=== PATIENT | female | born 1945 | race Caucasian/White ===

== ENCOUNTER 2017-02-02 16:21 | Emergency (ER) | payer MEDICARE, BC ==
[2017-02-02 16:54] VITALS: BP 119/53
--- NOTE | 2017-02-02 18:10 | UC ---
Throat Pain/Nasal Prince HPI - HPI Summary HPI Summary: P tc/o nasal congestion, sinus pressure and pain, PND X 5days - History of Current Complaint Chief Complaint: UCRespiratory Stated Complaint: UPPER RESPIRATORY Time Seen by Provider: 02/02/17 17:36 Hx Obtained From: Patient ?: No Onset/Duration: Gradual Onset, Lasting Days, Still Present, Worse Since - onset Pain Intensity: 0 Pain Scale Used: 0-10 Numeric Associated Signs & Symptoms: Positive: Sinus Discomfort - Epiglottits Risk Factors Epiglottis Risk Factors: Negative - Allergies/Home Medications Allergies/Adverse Reactions: Allergies Allergy/AdvReac Type Severity Reaction Status Date / Time No Known Allergies Allergy Verified 02/02/17 16:54 PMH/Surg Hx/FS Hx/Imm Hx Previously Healthy: Yes Cardiovascular History: Hypertension - Surgical History Surgical History: Yes Surgery Procedure, Year, and Place: TONSILLECTOMY. D&C'S. 02/2013 K[facility] - Family History Known Family History: Positive: Cardiac Disease - Social History Occupation: Retired Lives: With Family Alcohol Use: Occasionally Alcohol Amount: FEW DRINKS/MONTH Substance Use Type: None Smoking Status (MU): Never Smoked Tobacco Have You Smoked in the Last Year: No Review of Systems Constitutional: Chills, Fatigue Skin: Negative Eyes: Negative ENT: Sinus Congestion, Sinus Pain/Tenderness Respiratory: Cough Cardiovascular: Negative Gastrointestinal: Negative Genitourinary: Negative Motor: Negative Neurovascular: Negative Musculoskeletal: Negative Neurological: Headache Psychological: Negative Is Patient Immunocompromised?: No All Other Systems Reviewed And Are Negative: Yes Physical Exam Triage Information Reviewed: Yes Appearance: Well-Appearing Vital Signs: Initial Vital Signs Temp 98.0 F 02/02/17 16:50 Pulse 71 02/02/17 16:50 Resp 16 02/02/17 16:50 BP 119/53 02/02/17 16:50 Pulse Ox 99 02/02/17 16:50 Vital Signs Reviewed: Yes Eye Exam: Normal ENT Exam: Other ENT: Positive: Nasal congestion, Sinus tenderness Dental Exam: Normal Neck exam: Normal Respiratory Exam: Normal Cardiovascular Exam: Normal Musculoskeletal Exam: Normal Neurological Exam: Normal Psychological Exam: Normal Skin Exam: Normal Throat Pain/Nasal Course/Dx - Differential Dx/Diagnosis Differential Diagnosis/HQI/PQRI: Sinusitis, URI Provider Diagnoses: sinusitis Discharge - Discharge Plan Condition: Stable Disposition: HOME Prescriptions: Amoxicillin PO (*) [Amoxicillin 875 MG (*)] 875 mg PO Q12H #20 tab Patient Education Materials: Sinusitis (ED) Referrals: Lila Mcghee MD [Primary Care Provider] - If Needed
== END 2017-02-02 17:48 | disposition home or self-care (01) ==
LOC: UCCORT 16:21
DX: J32.9 Chronic sinusitis, unspecified (principal); Z72.89 Other problems related to lifestyle
CPT/HCPCS: 99212; G0463

== ENCOUNTER → 2017-12-03 06:08 | Day surgery (SDC) | payer MEDICARE, BC ==
--- NOTE | 2017-12-01 06:43 | HP ---
CC: Dr. Lila Mcghee; Dr. Anderson ADMITTING HISTORY AND PHYSICAL: DATE OF ADMISSION: 12/03/17 ADMITTING DIAGNOSES: 1. Right hydronephrosis. 2. Calculus, right ureter. 3. Right renal calculi. PLANNED PROCEDURE: Right ureteroscopy, possible laser and stent insertion (possibly to be followed i n the near future by lithotripsy). SURGEON: Dr. Anderson. HISTORY OF PRESENT ILLNESS: Lauren Skaggs is a 72-year-old lady with a history of recurrent renal calcu li. She was recently evaluated because of about 9 to 10-day history of abdominal pain predominantly on the right side. She has a history of recurrent renal calculi and a sonogram was obtained, which r evealed mild right hydronephrosis with an approximately 5 mm calculus in the distal right ureter. In addition to that, she has bilateral renal calculi. I recommended that we try conservative management and she was given Flomax 0.4 mg once a day to take as well as I also instructed her to significantly increase her fluid intake and also to strain her ur ine. The plan is that if she is not able to pass the calculus in the next several days, then she domingo l be brought in for ureteroscopy as she is confirmed that she has increasing pain over the weekend an d she states she has never been able to spontaneously pass a calculus before. PAST MEDICAL HISTORY: Significant for: 1. Recurrent renal calculi. 2. Hypertension. MEDICATIONS: On admission, enalapril 12.5 mg once a day. ALLERGIES: No known drug allergies. REVIEW OF SYSTEMS: She is otherwise in excellent health. There is no history of diabetes mellitus o r any other major systemic illness. PHYSICAL EXAMINATION GENERAL: Reveals a pleasant middle-aged lady. VITAL SIGNS: Blood pressure is 160/90; pulse 63 per minute, regular; temperature 97; oxygen saturati on 98% on room air. LUNGS: Clear bilaterally. CARDIOVASCULAR: Regular rate and rhythm. S1, S2. ABDOMEN: Soft with mild right flank tenderness. IMPRESSION: A 72-year-old lady with a right ureteral calculus as well as right renal calculi. Plan teresita procedure is right ureteroscopy, possible laser and stent insertion (possibly to be followed in t he near future by lithotripsy). [id number]/[facility] #: [id number]
[~2017-12-03 06:08] MED LIST: Buffered Lidocaine 0.9% SYRIN* 5 ML/SYR SYRINGE INTRADERM ONE; Buffered Lidocaine 0.9% SYRIN* 5 ML/SYR SYRINGE ONE; HYDROcodone/ACETAMIN 5-325 MG* 1 TAB PO PRN; Iohexol 180 (CONTRAST) 10 ML SDV IV ONE; Midazolam* 1 MG/ML 2 ML VIAL (2 MG) ONE; Naloxone* 0.4 MG/ML 1 ML VIAL IV PRN; Ondansetron INJ* 2 MG/ML VIAL IV PRN; Ondansetron INJ* 2 MG/ML VIAL ONE; Propofol* 10 MG/ML 20 ML BTL IV PUSH ONE; cefTRIAXone(*) 2 GM ADDV.VIAL IVPB ONE; fentaNYL* 50 MCG/ML 2 ML VIAL (100 MCG VIAL) IV PRN; fentaNYL* 50 MCG/ML 2 ML VIAL (100 MCG VIAL) ONE
--- NOTE | 2017-12-03 09:04 | RAD ---
INDICATION: RIGHT retrograde pyelogram, laser lithotripsy, stent placement. Technique: 13 seconds of?fluoroscopy?was provided?for the physician proceduralist. REPORT: Retrograde pyelogram documents hydroureter and mild calyceal blunting. Ureteral stent placed with decompression of the collecting system and ureter. IMPRESSION: Procedural control films. CPT II Codes: G9500
[2017-12-03 09:19] VITALS: BP 147/77
--- NOTE | 2017-12-03 10:22 | RAD ---
Indication: Right stent insertion. Flat plate of the abdomen demonstrates right ureteral stent in place. No dilated loops of bowel are noted. IMPRESSION: Right humeral stent is in place.
--- NOTE | 2017-12-03 11:20 | OP ---
CC: Dr. Lila Mcghee * DATE OF OPERATION: 12/03/17 - [facility] DATE OF : 45 SURGEON: Hussein Anderson MD ANESTHESIOLOGIST: Dr. Melton. ANESTHESIA: General. PRE-OP DIAGNOSES: 1. Calculus, right ureter. 2. Right hydronephrosis. POST-OP DIAGNOSES: 1. Calculus, right ureter. 2. Right hydronephrosis. OPERATIVE PROCEDURE: 1. Cystoscopy. 2. Right retrograde pyelogram. 3. Right ureteroscopy. 4. Laser lithotripsy. 5. Right stent insertion. COMPLICATIONS: None. STENT USED: A 6-[place] stent, right ureter. INDICATIONS: Lauren Skaggs is a 72-year-old lady with history of recurrent renal and ureteral calculi. She was recently evaluated and noted to have a calculus in the distal right ureter. OPERATIVE FINDINGS: An approximately 5-6 mm calculus impacted in right distal ureter with surrounding edema and inflammation and right hydronephrosis and hydroureter. POSTOPERATIVE CONDITION: Stable. DESCRIPTION OF PROCEDURE: After induction of general anesthesia, the patient was placed in dorsal lithotomy position. Sequential compression devices were in place and functioning. Initial cystoscopy revealed a normal-appearing bladder with no evidence of any suspicious bladder lesions noted. A guidewire was introduced into the right ureter. Retrograde pyelogram revealed fullness of the right collecting system and a dilated proximal right ureter. A 6-[place] semirigid ureteroscope was introduced and advanced into the ureter. Under direct vision, a few centimeters above the ureterovesical junction, a 5-6 mm calculus was noted to be impacted with surrounding edema and inflammation. Using a 550 micron Holmium laser, this was successfully broken up into multiple small fragments. All of the sizeable fragments were removed into the bladder and in the process disintegrated, so there were no adequate fragments left to sent for analysis. The ureteroscope was readvanced to make sure there were no remaining fragments in the ureter and none were noted. A 6-[place] stent was introduced and positioned under fluoroscopy with good proximal and distal positioning obtained. The bladder was emptied. The patient tolerated the procedure satisfactorily and was transferred back to the recovery area in stable condition. [id number]/[facility] #: [id number] [facility]
== END | disposition home or self-care (01) ==
LOC: OR 06:08
PROVIDERS: ATTEND Urology
DX: N20.1 Calculus of ureter (principal); N20.0 Calculus of kidney; N13.30 Unspecified hydronephrosis
CPT/HCPCS: 74018; 74420; C1876; J0696; J2250; J2405; J2704; J3010